=== PATIENT | male | born 1990 | race Caucasian/White ===

== ENCOUNTER 2018-12-24 10:18 | Emergency (ER) | payer OTHER ==
[2018-12-24 10:23] VITALS: BP 140/82
[2018-12-24] MEDS ORDERED: RABIES VACC, HUMAN DIPLOID/PF 2.5 UNIT VIAL (RABAVERT) IM ONE (10:25)
--- NOTE | 2018-12-24 10:30 | EDPHY ---
H & P Stated Complaint: Bitten 1wk [employer]OR, needs second course rabies vaccine Time Seen by Provider: 12/24/18 10:25 HPI/ROS: HPI: This is a 28-year-old who presents with Chief Complaint: Bitten 1wk [employer], needs second course rabies vaccine Location: Left pointer finger Quality: Raccoon bite Duration: 1 week ago Signs and Symptoms: No bleeding, no radiation, no numbness, no weakness, no tingling, no incontinence, no decreased range of motion, no swelling, no pain, no fever Timing: Acute Severity: Mild Context: Patient is from [place], [place] presents with requesting 2nd rabies vaccine per immunization schedule given from [place] emergency room 1 week ago. Patient reports he was bit by raccoon after he attend a wedding the [facility]. He was outside cooking hot dogs when he reached down on the picnic table to grab the buns and was bit by raccoon. Patient went to the emergency room and received his 1st rabies vaccine on the day of the bite. Denies radiation, weakness, skin color changes. Patient called multiple clinics that were out of the rabies vaccine and was directed to the [facility]. Modifying Factors: See above Comment: ROS: A comprehensive 10 system review of systems is otherwise negative aside from elements mentioned in the history of present illness. MEDICAL/SURGICAL/SOCIAL HISTORY: Medical history: Generally healthy. Does not take any regular medications. Surgical history: Denies Social history: Employed. Nontobacco user. Drinks alcohol socially. CONSTITUTIONAL: Well-developed, well-nourished adult white male, awake and alert, no obvious distress HEENT: Atraumatic and normocephalic, PERRL, EOMI. Nares patent; no rhinorrhea; no nasal mucosal edema. Tympanic membranes clear. Oropharynx clear, no exudate and moist pink mucosa. Airway patent. No lymphadenopathy. No meningismus. Cardiovascular: Normal S1/S2, regular rate, regular rhythm, without murmur rub or gallop. PULMONARY/CHEST: Symmetrical and nontender. Clear to auscultation bilaterally. Good air movement. No accessory muscle usage. ABDOMEN: Soft, nondistended, nontender, no rebound, no guarding, no peritoneal signs, no masses or organomegaly. No CVAT. EXTREMITIES: 2/2 pulses, strength 5/5, no deformities, no clubbing, no cyanosis or edema. NEUROLOGICAL: no focal neuro deficits. GCS 15. SKIN: Warm and dry, no erythema. no rash. Good capillary refill. Source: Patient Exam Limitations: No limitations - Personal History Current Tetanus/Diphtheria Vaccine: No - Medical/Surgical History Hx Asthma: No Hx Chronic Respiratory Disease: No Hx Diabetes: No Hx Cardiac Disease: No Hx Renal Disease: No Hx Cirrhosis: No Hx Alcoholism: No Hx HIV/AIDS: No Hx Splenectomy or Spleen Trauma: No Other PMH: none - Social History Smoking Status: Never smoked Constitutional: Initial Vital Signs Temperature (C) 36.8 C 12/24/18 10:20 Heart Rate 80 12/24/18 10:20 Respiratory Rate 16 12/24/18 10:20 Blood Pressure 140/82 H 12/24/18 10:20 O2 Sat (%) 98 12/24/18 10:20 O2 Delivery Mode Room Air Allergies/Adverse Reactions: No Known Allergies Allergy (Unverified 12/24/18 10:20) Medical Decision Making ED Course/Re-evaluation: Vital signs reviewed and stable upon arrival Tetanus is up-to-date Given 2nd rabies vaccine per immunization schedule written on prescription pad from [place]. Referral to [facility] for remaining rabies vaccinations. No signs of neurovascular compromise/tenting of skin/compartment syndrome/ extremities and joints examined above and below area of concern and are neurovascularly intact. This patient was seen under the supervision of my secondary supervising physician. I evaluated and cared for this patient with attending. Differential Diagnosis: Differential diagnosis includes but is not limited to rabies, vaccination schedule, cellulitis, tenosynovitis. Departure - Departure Disposition: Home, Routine, Self-Care Clinical Impression: Encounter for vaccination Condition: Good Instructions: Rabies Vaccine (ED) Additional Instructions: Follow-up with [facility] for remaining rabies vaccination schedule. Referrals: [facility] (ED,. [Edm Groups for Call Sched] - As per Instructions
== END 2018-12-24 10:45 | disposition home or self-care (01) ==
DX: S61.251D Open bite of left index finger without damage to nail, subsequent encounter (principal); Z23 Encounter for immunization; W55.51XD Bitten by raccoon, subsequent encounter